=== PATIENT | male | born 1975 | race Two or more races ===

== ENCOUNTER 2022-08-15 12:24 | Emergency (ER) | payer OTHER ==
[~2022-08-15] VITALS: Ht 182.9 cm; Wt 93.1 kg
[2022-08-15] MEDS ORDERED: cloNIDine HCL 0.1 MG TAB PO ONE (13:00)
[2022-08-15 13:39] LABS: Albumin 4.5 g/dL (3.4-5.0); Calcium 8.7 mg/dL (8.5-10.1); Potassium 4.4 mmol/L (3.5-5.1)
[2022-08-15 13:43] LABS: BUN/Creatinine Ratio 15.3 (10.0-20.0); Basophils # (auto) 0.1 10 ^3/uL (0-0.2); Basophils % (auto) 0.8 % (0.0-2.0); Bilirubin, Total 0.8 mg/dL (0.2-1.0); Eosinophils # (auto) 0 10 ^3/uL (0-0.8); Eosinophils % (auto) 0.2 % (0.0-7.0); Hematocrit 49.3 % (41.0-53.0); Lymphocytes # (auto) 1.5 10 ^3/uL (0.4-5.4); Lymphocytes % (auto) 16.9 % (10.0-50.0); Mean Corpuscular Hemoglobin 31.6 pg (28.0-32.0); Mean Corpuscular Hgb Conc. 34.6 g/dL (32.0-36.0); Mean Corpuscular Volume 91.6 fL (80.0-100.0); Monocytes # (auto) 0.5 10 ^3/uL (0-1.3); Monocytes % (auto) 5.5 % (0.0-12.0); Neutrophils # (auto) 6.9 10 ^3/uL (1.6-8.6); Neutrophils % (auto) 76.6 % (37.0-80.0); Red Blood Cells 5.38 10^6/uL (4.5-5.90); Red Cell Distribution Width 12.9 % (11.8-14.3); Total Protein 7.4 g/dL (6.4-8.2)
[2022-08-15 14:36] VITALS: BP 150/110
[2022-08-15] MEDS ORDERED: IBU600T PO (15:05)
[2022-08-15] MEDS ORDERED: LISI-275 PO (15:05)
[2022-08-15] MEDS ORDERED: HYDROcodone-ACET 10/325MG TAB PO ONE (15:30)
[2022-08-15 16:03] LABS: Urine Bacteria NONE SEEN /hpf (None Seen); Urine Blood 1+ /uL (Negative); Urine Mucus FEW (None Seen); Urine Specific Gravity 1.026 (1.001-1.035); Urine WBC 1 /hpf (0 - 3)
== END 2022-08-15 15:40 | disposition home or self-care (01) ==
LOC: ER 12:24
DX: I16.0 Hypertensive urgency (principal)
CPT/HCPCS: 36415; 70450; 80053; 81001; 82962; 85025; 93005

== ENCOUNTER 2023-12-13 21:10 | Emergency (ER) | payer OTHER ==
[~2023-12-13] VITALS: Ht 182.9 cm; Wt 88.6 kg
[~2023-12-13 21:10] MED LIST: IBU600T PO; LISI-275 PO
[2023-12-13] MEDS ORDERED: IBU600T PO (22:24)
[2023-12-14 01:12] VITALS: BP 101/73; PULSE 105; RESP 18; TEMP 99.1; O2SAT 95
[2023-12-14] MEDS: HYDROcodone-ACET 5/325MG TAB PO ONE (01:24)
== END 2023-12-14 01:26 | disposition home or self-care (01) ==
LOC: ER 21:10
DX: R07.81 Pleurodynia (principal); Z88.6 Allergy status to analgesic agent
CPT/HCPCS: 71045; 93005